=== PATIENT | female | born 1940 | race Caucasian/White ===

== ENCOUNTER 2021-01-20 02:34 | Observation (INO) ==
[2021-01-20] MEDS ORDERED: *HR* LORazepam 2 MG/ML VIAL IVP ONE (03:51)
[2021-01-20 08:05] LABS: Eosinophils % 0.9 %; Lymphocytes % 21.6 %; Mean Corpuscular Hemoglobin 30.2 pg (28.0-33.3)
[2021-01-20 08:07] LABS: Basophils # 0.1 K/mcL (0.0-0.2); Basophils % 0.8 %; Eosinophils # 0.1 K/mcL (0.0-0.6); Hematocrit 31.1 % (35.3-44.9); Hemoglobin 10.3 g/dL (11.5-15.4); Immature Granulocytes % 0.3 % (0-4); Immature Platelets 6.4 % (1.1-6.1); Lymphocytes # 1.4 K/mcL (0.6-4.6); Mean Corpuscular HGB Conc 33.1 g/dL (31.6-35.5); Mean Corpuscular Volume 91.2 fL (83.0-100.0); Mean Platelet Volume 11.6 fL (9.4-12.4); Monocytes # 0.8 K/mcL (0.0-1.3); Monocytes % 12.6 %; Neutrophils # 4.2 K/mcL (1.6-8.9); Platelet Count 422 K/mcL (140-400); Red Blood Count 3.41 M/mcL (3.82-4.97); Red Cell Distribution Width 16.4 % (11.5-14.5); Segmented Neutrophils % 63.8 %; White Blood Count 6.5 K/mcL (4.3-11.1)
[2021-01-20 08:21] LABS: Alanine Aminotransferase 9 Units/L (7-52); Albumin 2.3 g/dL (3.5-5.7); Albumin/Globulin Ratio 0.9 (1.1-2.2); Alkaline Phosphatase 104 Units/L (34-104); Aspartate Amino Transferase 25 Units/L (13-39); BUN/Creatinine Ratio 13 (6-26); Bilirubin,Direct 0.6 mg/dL (0.0-0.2); Bilirubin,Indirect 1.2 mg/dL (0.0-1.0); Bilirubin,Total 1.8 mg/dL (0.3-1.0); Blood Urea Nitrogen 9 mg/dL (8-23); Calcium 7.2 mg/dL (8.6-10.3); Carbon Dioxide 35 mEq/L (23-29); Chloride 95 mEq/L (98-107); Globulin 2.7 g/dL (2.4-3.5); Glucose 93 mg/dL (70-105); Osmolality,Calculated 280 (280-300); Potassium 2.7 mEq/L (3.5-5.1); Sodium 136 mEq/L (136-145); Troponin I < 0.03 ng/mL (< 0.04); eGFR For African Americans > 60 (> 60); eGFR For Non-African Americans > 60 (> 60)
[2021-01-20] MEDS ORDERED: Potassium Chloride Elixir 20 MEQ/15 ML UDC PO ONE (08:57)
[2021-01-20] MEDS ORDERED: *HR* LORazepam 0.5 MG TABLET PO ONE (09:46)
[2021-01-20] MEDS ORDERED: Naloxone 0.4 MG/ML INJ IVP PRN (11:38)
[2021-01-20] MEDS ORDERED: Perflutren Lipid Microsphere 1.3 ML in 0.9 % Sodium Chloride 8.7 ML IVP PRN (12:04)
[2021-01-20] MEDS ORDERED: Potassium Chloride 40 MEQ, Lidocaine 1% 2 ML in 0.9 % Sodium Chloride 500 ML IVPB ONE (17:42)
[2021-01-20] MEDS: *HR* Heparin 5,000 UNIT/ML VIAL SQ SCH (18:23)
[2021-01-21] MEDS: *HR* Heparin 5,000 UNIT/ML VIAL SQ SCH (05:26)
[2021-01-21] MEDS: Albumin 25% 25gram/100mL 25 GM/100 ML IV.SOLN IVPB SCH ×2 (08:19→17:32)
[2021-01-21] MEDS ORDERED: Furosemide 40 MG/4 ML VIAL IVP SCH (09:00)
[2021-01-21] MEDS ORDERED: Furosemide 40 MG/4 ML VIAL IVP ONE (09:00)
[2021-01-21 09:55] LABS: Phosphorous 2.1 mg/dL (2.7-4.5)
[2021-01-21] MEDS ORDERED: *HR* Enoxaparin 40 MG/0.4 ML SYRINGE SQ ONE (10:51)
[2021-01-21] MEDS ORDERED: Potassium Phosphate 44 MEQ in 0.9 % Sodium Chloride 250 ML IVPB ONE (10:53)
[2021-01-21 10:58] LABS: BUN/Creatinine Ratio 15 (6-26); Blood Urea Nitrogen 11 mg/dL (8-23); Calcium 7.4 mg/dL (8.6-10.3); Carbon Dioxide 30 mEq/L (23-29); Chloride 99 mEq/L (98-107); Glucose 145 mg/dL (70-105); Osmolality,Calculated 284 (280-300); Potassium 3.4 mEq/L (3.5-5.1); Sodium 136 mEq/L (136-145); eGFR For African Americans > 60 (> 60); eGFR For Non-African Americans > 60 (> 60)
[2021-01-21] MEDS: Furosemide 40 MG/4 ML VIAL IVP SCH (17:31)
[2021-01-22] MEDS: Albumin 25% 25gram/100mL 25 GM/100 ML IV.SOLN IVPB SCH ×2 (00:11→08:08)
[2021-01-22 01:36] LABS: Alanine Aminotransferase 7 Units/L (7-52); Albumin 2.5 g/dL (3.5-5.7); Albumin/Globulin Ratio 1.1 (1.1-2.2); Alkaline Phosphatase 80 Units/L (34-104); Aspartate Amino Transferase 15 Units/L (13-39); BUN/Creatinine Ratio 15 (6-26); Bilirubin,Direct 0.5 mg/dL (0.0-0.2); Bilirubin,Indirect 0.7 mg/dL (0.0-1.0); Bilirubin,Total 1.2 mg/dL (0.3-1.0); Blood Urea Nitrogen 10 mg/dL (8-23); Calcium 7.2 mg/dL (8.6-10.3); Carbon Dioxide 31 mEq/L (23-29); Chloride 100 mEq/L (98-107); Globulin 2.2 g/dL (2.4-3.5); Glucose 99 mg/dL (70-105); Magnesium 1.6 mg/dL (1.6-2.6); Osmolality,Calculated 285 (280-300); Potassium 3.4 mEq/L (3.5-5.1); Sodium 138 mEq/L (136-145); Total Protein 4.7 g/dL (6.4-8.9); eGFR For African Americans > 60 (> 60); eGFR For Non-African Americans > 60 (> 60)
[2021-01-22] MEDS: *HR* Enoxaparin 40 MG/0.4 ML SYRINGE SQ SCH (05:42)
[2021-01-22] MEDS: Furosemide 40 MG/4 ML VIAL IVP SCH (08:15)
[2021-01-22] MEDS: Furosemide 40 MG TABLET PO SCH (15:59)
[2021-01-23] MEDS: *HR* Enoxaparin 40 MG/0.4 ML SYRINGE SQ SCH (05:41)
[2021-01-23 06:49] VITALS: BP 114/65; PULSE 72; TEMP 97.9; O2SAT 97
[2021-01-23] MEDS: Furosemide 40 MG TABLET PO SCH (07:28)
== END 2021-01-23 10:00 | disposition hospice, home (50) ==
LOC: 2ANU 02:34 → EMEROOARM 02:34 → SUATTDRO 10:04 → 2ANU 11:42
PROVIDERS: ADMIT Internal Medicine; ATTEND Internal Medicine

== ENCOUNTER 2021-02-25 10:22 | Inpatient (IN) ==
[2021-02-25] MEDS ORDERED: Ondansetron 4 MG/2 ML VIAL IVP ONE ×2 (11:01→14:41)
[2021-02-25] MEDS ORDERED: 0.9 % Sodium Chloride 1,000 ML IVC ONE (11:01)
[2021-02-25] MEDS ORDERED: Isovue-370 500 ML BOTTLE IVP ONE (11:22)
[2021-02-25 11:33] LABS: Basophils # 0.1 K/mcL (0.0-0.2); Basophils % 0.4 %; Eosinophils % 0.1 %; Hematocrit 34.4 % (35.3-44.9); Hemoglobin 11.4 g/dL (11.5-15.4); Immature Granulocytes % 0.4 % (0-4); Lymphocytes # 1.5 K/mcL (0.6-4.6); Mean Corpuscular HGB Conc 33.1 g/dL (31.6-35.5); Mean Corpuscular Hemoglobin 29.6 pg (28.0-33.3); Mean Corpuscular Volume 89.4 fL (83.0-100.0); Mean Platelet Volume 11.4 fL (9.4-12.4); Monocytes # 1.4 K/mcL (0.0-1.3); Monocytes % 10.1 %; Neutrophils # 10.5 K/mcL (1.6-8.9); Platelet Count 443 K/mcL (140-400); Red Blood Count 3.85 M/mcL (3.82-4.97); Red Cell Distribution Width 13.7 % (11.5-14.5); White Blood Count 13.4 K/mcL (4.3-11.1)
[2021-02-25 12:06] LABS: Troponin I < 0.03 ng/mL (< 0.04)
[2021-02-25 13:06] LABS: Alanine Aminotransferase 9 Units/L (7-52); Albumin 3.6 g/dL (3.5-5.7); Alkaline Phosphatase 111 Units/L (34-104); Aspartate Amino Transferase 34 Units/L (13-39); BUN/Creatinine Ratio 16 (6-26); Bilirubin,Direct 0.5 mg/dL (0.0-0.2); Bilirubin,Indirect 0.6 mg/dL (0.0-1.0); Bilirubin,Total 1.1 mg/dL (0.3-1.0); Blood Urea Nitrogen 12 mg/dL (8-23); Calcium 9.1 mg/dL (8.6-10.3); Carbon Dioxide 23 mEq/L (23-29); Chloride 101 mEq/L (98-107); Globulin 3.5 g/dL (2.4-3.5); Glucose 118 mg/dL (70-105); Lipase 24 Units/L (11-82); Osmolality,Calculated 283 (280-300); Potassium 3.9 mEq/L (3.5-5.1); Sodium 136 mEq/L (136-145); Total Protein 7.1 g/dL (6.4-8.9); eGFR For African Americans > 60 (> 60); eGFR For Non-African Americans > 60 (> 60)
[2021-02-25 14:18] LABS: Bacteria,Urine Few per hpf (None-Few); Bilirubin,Urine Negative (Negative); Blood,Urine Negative (Negative); Clarity,Urine Clear (Clear); Color,Urine Light-Yellow (Yellow); Glucose,Urine (UA) Normal (Normal); Ketones,Urine Negative (Negative); Leukocyte Esterase,Urine Moderate (Negative); Mucus,Urine Few per lpf (None-Few); Nitrite,Urine Negative (Negative); Protein,Urine Negative (Neg-Trace); RBC,Urine 0-3 per hpf (0-3); Specific Gravity,Urine 1.018 (1.010-1.025); Squamous Epithelial Cell,Urine Few per hpf (None-Few); Urobilinogen,Urine Normal (Normal); WBC,Urine 15-30 per hpf (0-3)
[2021-02-25] MEDS ORDERED: *HR* HYDROmorphone (PF) 1 MG/ML SYRINGE IVP STA (14:40)
[2021-02-25] MEDS ORDERED: Piperacillin/Tazobactam 3.375 GM in 0.9 % Sodium Chloride Mini Bag 100 ML IVPB ONE (15:14)
[2021-02-25] MEDS ORDERED: Naloxone 0.4 MG/ML INJ IVP PRN (16:09)
[2021-02-25] MEDS ORDERED: Ondansetron 4 MG/2 ML VIAL IVP PRN (16:09)
[2021-02-25] MEDS ORDERED: Perflutren Lipid Microsphere 1.3 ML in 0.9 % Sodium Chloride 8.7 ML IVP PRN (16:25)
[2021-02-25] MEDS ORDERED: Morphine Sulfate 2 MG/ML SYRINGE IVP PRN (16:28)
[2021-02-25] MEDS: 0.9 % Sodium Chloride 1,000 ML IVC SCH (18:30)
[2021-02-25] MEDS: Piperacillin/Tazobactam 3.375 GM in 0.9 % Sodium Chloride Mini Bag 100 ML IVPB SCH (23:51)
[2021-02-26] MEDS ORDERED: *HR* HYDROmorphone 2 MG TABLET PO ONE (00:25)
[2021-02-26] MEDS: 0.9 % Sodium Chloride 1,000 ML IVC SCH ×3 (05:47→20:50)
[2021-02-26] MEDS: *HR* Heparin 5,000 UNIT/ML VIAL SQ SCH ×3 (05:47→21:11)
[2021-02-26] MEDS ORDERED: Isovue-300 50ML VIAL ONE (07:24)
[2021-02-26] MEDS ORDERED: *HR* Rocuronium Bromide 50 MG/5 ML VIAL ONE ×2 (07:41→12:53)
[2021-02-26] MEDS ORDERED: *HR* Propofol 200 MG/20 ML VIAL IVP ONE ×2 (07:41→12:53)
[2021-02-26] MEDS ORDERED: Lidocaine -MPF 2% 2 ML VIAL ONE ×2 (07:41→12:53)
[2021-02-26] MEDS ORDERED: *HR* Succinylcholine 200 MG/10 ML VIAL IVP ONE ×2 (07:41→12:53)
[2021-02-26] MEDS ORDERED: Lidocaine HCL 4 ML Topical Solution (Laryng-O-Jet Kit Sterile Pak) TP ONE ×2 (07:41→12:53)
[2021-02-26] MEDS ORDERED: Ondansetron 4 MG/2 ML VIAL ONE ×2 (07:41→12:53)
[2021-02-26] MEDS ORDERED: *HR* FentaNYL (PF) 100 MCG/2 ML VIAL ONE ×3 (07:41→14:52)
[2021-02-26] MEDS: Piperacillin/Tazobactam 3.375 GM in 0.9 % Sodium Chloride Mini Bag 100 ML IVPB SCH ×3 (07:53→23:19)
[2021-02-26] MEDS ORDERED: cefOXitin 1,000 MG, 0.9 % Sodium Chloride 1,000 ML IR ONE ×2 (08:00→15:50)
[2021-02-26] MEDS ORDERED: Pantoprazole 40 MG VIAL IVP SCH (09:00)
[2021-02-26] MEDS ORDERED: Perflutren Lipid Microsphere 1.3 ML in 0.9 % Sodium Chloride 8.7 ML IVP PRN ×2 (10:14→15:50)
[2021-02-26] MEDS ORDERED: *HR* Midazolam HCl 2 MG/2 ML VIAL ONE (12:53)
[2021-02-26 13:18] LABS: Basophils # 0.1 K/mcL (0.0-0.2); Basophils % 0.5 %; Eosinophils # 0.1 K/mcL (0.0-0.6); Eosinophils % 0.6 %; Hematocrit 30.7 % (35.3-44.9); Hemoglobin 10.1 g/dL (11.5-15.4); Immature Granulocytes % 0.4 % (0-4); Lymphocytes # 1.7 K/mcL (0.6-4.6); Lymphocytes % 11.5 %; Mean Corpuscular HGB Conc 32.9 g/dL (31.6-35.5); Mean Corpuscular Hemoglobin 29.9 pg (28.0-33.3); Mean Corpuscular Volume 90.8 fL (83.0-100.0); Mean Platelet Volume 12.2 fL (9.4-12.4); Monocytes % 13.4 %; Platelet Count 378 K/mcL (140-400); Red Blood Count 3.38 M/mcL (3.82-4.97); Red Cell Distribution Width 13.9 % (11.5-14.5); Segmented Neutrophils % 73.6 %
[2021-02-26] MEDS ORDERED: Ondansetron 4 MG/2 ML VIAL IVP PRN ×3 (13:20→15:50)
[2021-02-26] MEDS ORDERED: *HR* FentaNYL (PF) 100 MCG/2 ML VIAL IVP PRN ×2 (13:20→15:50)
[2021-02-26] MEDS ORDERED: Nitroglycerin 0.4 MG TAB.SUBL SL PRN ×2 (13:20→15:50)
[2021-02-26] MEDS ORDERED: Albuterol 2.5 MG/3 ML NEBULIZER IH PRN ×2 (13:20→15:50)
[2021-02-26] MEDS ORDERED: Naloxone 0.4 MG/ML INJ IVP PRN ×3 (13:20→15:50)
[2021-02-26] MEDS ORDERED: Sugammadex Sodium 200 MG/2 ML VIAL IV ONE (14:52)
[2021-02-26] MEDS ORDERED: Morphine Sulfate 2 MG/ML SYRINGE IVP PRN (15:50)
[2021-02-26] MEDS ORDERED: Vancomycin 1,500 MG/265 ML IV.SOLN IVPB SCH (18:00)
[2021-02-26] MEDS ORDERED: Vancomycin 1,250 MG/262.5 ML IV.SOLN IVPB SCH (19:00)
[2021-02-27 01:48] LABS: Hemoglobin 8.9 g/dL (11.5-15.4); Immature Granulocytes % 0.4 % (0-4); Monocytes % 10.3 %; Red Cell Distribution Width 13.8 % (11.5-14.5); Segmented Neutrophils % 78.7 %
[2021-02-27 01:50] LABS: Basophils % 0.1 %; Hematocrit 27.5 % (35.3-44.9); Immature Platelets 4.1 % (1.1-6.1); Lymphocytes # 0.9 K/mcL (0.6-4.6); Lymphocytes % 10.5 %; Mean Corpuscular HGB Conc 32.4 g/dL (31.6-35.5); Mean Corpuscular Volume 92.6 fL (83.0-100.0); Mean Platelet Volume 11.6 fL (9.4-12.4); Monocytes # 0.9 K/mcL (0.0-1.3); Platelet Count 253 K/mcL (140-400); Red Blood Count 2.97 M/mcL (3.82-4.97); White Blood Count 8.9 K/mcL (4.3-11.1)
[2021-02-27 01:51] LABS: Alanine Aminotransferase 13 Units/L (7-52); Albumin 2.6 g/dL (3.5-5.7); Alkaline Phosphatase 92 Units/L (34-104); Aspartate Amino Transferase 43 Units/L (13-39); BUN/Creatinine Ratio 14 (6-26); Bilirubin,Total 0.7 mg/dL (0.3-1.0); Blood Urea Nitrogen 9 mg/dL (8-23); Calcium 7.9 mg/dL (8.6-10.3); Carbon Dioxide 21 mEq/L (23-29); Chloride 109 mEq/L (98-107); Chol/HDL Ratio 3.6 (0-4.9); Cholesterol 142 mg/dL (< 200); Globulin 2.7 g/dL (2.4-3.5); Glucose 113 mg/dL (70-105); HDL Cholesterol 40 mg/dL (40-59); LDL Cholesterol,Calculated 88 mg/dL (< 100); Osmolality,Calculated 281 (280-300); Sodium 136 mEq/L (136-145); Total Protein 5.3 g/dL (6.4-8.9); Triglycerides 71 mg/dL (< 150); eGFR For African Americans > 60 (> 60); eGFR For Non-African Americans > 60 (> 60)
[2021-02-27 02:33] LABS: Large Platelets Present (Not Present); Platelet Estimate Normal (Normal)
[2021-02-27] MEDS: 0.9 % Sodium Chloride 1,000 ML IVC SCH ×2 (05:32→22:56)
[2021-02-27] MEDS: *HR* Heparin 5,000 UNIT/ML VIAL SQ SCH ×3 (05:33→21:01)
[2021-02-27] MEDS: Pantoprazole 40 MG VIAL IVP SCH (15:52)
[2021-02-28] MEDS: *HR* Heparin 5,000 UNIT/ML VIAL SQ SCH (04:46)
[2021-02-28 05:15] LABS: Basophils % 0.3 %; Eosinophils # 0.2 K/mcL (0.0-0.6); Eosinophils % 1.7 %; Hematocrit 27.3 % (35.3-44.9); Hemoglobin 8.9 g/dL (11.5-15.4); Immature Granulocytes % 0.3 % (0-4); Lymphocytes # 2.1 K/mcL (0.6-4.6); Lymphocytes % 17.9 %; Mean Corpuscular HGB Conc 32.6 g/dL (31.6-35.5); Mean Corpuscular Hemoglobin 29.9 pg (28.0-33.3); Mean Corpuscular Volume 91.6 fL (83.0-100.0); Mean Platelet Volume 11.7 fL (9.4-12.4); Monocytes # 1.9 K/mcL (0.0-1.3); Monocytes % 15.9 %; Neutrophils # 7.6 K/mcL (1.6-8.9); Platelet Count 388 K/mcL (140-400); Red Blood Count 2.98 M/mcL (3.82-4.97); Red Cell Distribution Width 13.8 % (11.5-14.5); Segmented Neutrophils % 63.9 %; White Blood Count 11.8 K/mcL (4.3-11.1)
[2021-02-28 05:33] LABS: Alanine Aminotransferase 15 Units/L (7-52); Albumin 2.7 g/dL (3.5-5.7); Albumin/Globulin Ratio 0.9 (1.1-2.2); Alkaline Phosphatase 83 Units/L (34-104); Aspartate Amino Transferase 33 Units/L (13-39); BUN/Creatinine Ratio 12 (6-26); Bilirubin,Total 0.7 mg/dL (0.3-1.0); Blood Urea Nitrogen 8 mg/dL (8-23); Carbon Dioxide 24 mEq/L (23-29); Chloride 106 mEq/L (98-107); Globulin 2.9 g/dL (2.4-3.5); Glucose 76 mg/dL (70-105); Osmolality,Calculated 281 (280-300); Potassium 3.4 mEq/L (3.5-5.1); Sodium 137 mEq/L (136-145); Total Protein 5.6 g/dL (6.4-8.9); eGFR For African Americans > 60 (> 60); eGFR For Non-African Americans > 60 (> 60)
[2021-02-28] MEDS: Piperacillin/Tazobactam 3.375 GM in 0.9 % Sodium Chloride Mini Bag 100 ML IVPB SCH (07:34)
[2021-02-28] MEDS: 0.9 % Sodium Chloride 1,000 ML IVC SCH (07:34)
[2021-02-28 09:58] VITALS: BP 113/62; PULSE 64; TEMP 97.6; O2SAT 96
[2021-02-28] MEDS: Pantoprazole 40 MG VIAL IVP SCH (12:25)
== END 2021-02-28 14:20 | disposition hospice, home (50) | DRG 418 ==
LOC: 3ANU 10:22 → EMEROOARM 10:22 → 3ANU 17:44 → SUATTDRO 02-27 21:38
PROVIDERS: ADMIT Internal Medicine; ATTEND Internal Medicine